=== PATIENT | female | born 1955 | race Caucasian/White ===

== ENCOUNTER 2019-02-05 20:35 | Emergency (ER) | payer OTHER ==
[~2019-02-05] VITALS: Ht 160 cm; Wt 83.9 kg
[~2019-02-05 20:35] MED LIST: AMITRIPTYLINE H50 MG PO; HALCION0.25 MG PO; METFORMIN HCL500 MG PO; PROTONIX40 MG PO
--- OUTSIDE RECORDS SUMMARY | 2019-02-05 20:38 | XMS ---
PreManage Notification: JADA WOODS Security Marketing Account Manager Events No recent Security Events currently on file CRITERIA MET - [facility] CARE PROVIDERS Castro Sánchez Current PHONE: Unknown [place] Current Orthopedic Surgery \T\ Fracture [facility] PHONE: Unknown Norris has no Care Guidelines for this patient. Seferino VISIT COUNT (12 MO.) Mima Abdi TOTAL 1 NOTE: Visits indicate total known visits. ED/UCC VISIT TRACKING (12 MO.) 02/05/2019 20:[address] [facility] [place] TYPE: Emergency COMPLAINT: - DIFFICULTY BREATHING INPATIENT VISIT TRACKING (12 MO.) No inpatient visits to display in this time frame [id number]
[2019-02-05] MEDS ORDERED: LEVAQUIN750 MG PO (22:24)
--- NOTE | 2019-02-06 06:19 | EKG ---
[facility] [address] [place], [place] [address] Signed Sinus tachycardia Inferior infarct , age undetermined Abnormal ECG No previous ECGs available Confirmed by SUDHIR MAHER MD ([id number]) on 02/06/2019 6:19:25 AM Electronically Signed By: SUDHIR MAHER MD 02/06/19 0619 PATIENT NAME: JADA WOODS Electrocardiogram DATE OF : 55 PHYSICIAN: SUDHIR MAHER MD REPORT #: [id number] REPORT IS CONFIDENTIAL AND NOT TO BE RELEASED WITHOUT AUTHORIZATION
== END 2019-02-05 23:08 | disposition home or self-care (01) ==
LOC: ED 20:35
DX: J18.9 Pneumonia, unspecified organism (principal); Z85.3 Personal history of malignant neoplasm of breast; E11.9 Type 2 diabetes mellitus without complications; Z87.891 Personal history of nicotine dependence; Z88.1 Allergy status to other antibiotic agents; Z88.5 Allergy status to narcotic agent; Z79.899 Other long term (current) drug therapy
CPT/HCPCS: 71046; 80053; 83735; 83880; 84484; 85025; 93005; 93010; 94640; 99285-25

== ENCOUNTER 2024-02-13 17:14 | Observation (INO) | payer MEDICARE ==
[~2024-02-13] VITALS: Ht 160 cm; Wt 60.0 kg
[~2024-02-13 17:14] MED LIST changes: +LEVAQUIN750 MG PO
--- OUTSIDE RECORDS SUMMARY | 2024-02-13 17:17 | XMS ---
PreManage Notification: JADA WOODS Security Technical Writing Lead/Mgr Events No recent Security Events currently on file CRITERIA MET - [employer] CARE PROVIDERS [facility] 02/11/2019-Current PHONE: Unknown Norris has no Care Guidelines for this patient. EJozef VISIT COUNT (12 MO.) 1 [facility] TOTAL 1 NOTE: Visits indicate total known visits. ED/UCC VISIT TRACKING (12 MO.) 02/13/2024 17:14 [facility] TYPE: Emergency COMPLAINT: - DIFFICULT BREATHING INPATIENT VISIT TRACKING (12 MO.) No inpatient visits to display in this time frame [email or web address]
[2024-02-13] MEDS ORDERED: ZOLPIDEM TARTRA10 MG PO (17:26)
[2024-02-13] MEDS ORDERED: TOPIRAMATE25 MG PO (17:26)
[2024-02-13] MEDS ORDERED: SERTRALINE HCL50 MG PO (17:27)
[2024-02-13] MEDS ORDERED: ALBUTEROL/IPRATROPIUM 3 ML NEB INH ONE (17:30)
[2024-02-13] MEDS ORDERED: methylPREDNISolone SOD SUCC 125 MG/2 ML VIAL IV ONE (17:30)
[2024-02-13 18:08] LABS: RDW 13.4 (10.5-15.0)
[2024-02-13 18:10] LABS: BASOPHILS 0.4 % (0-2); EOSINOPHILS 1.3 % (0-6); HEMATOCRIT 37.6 % (35.0-50.0); HEMOGLOBIN 12.4 g/dL (12.0-18.0); LYMPHOCYTES 4.4 % (24-44); MCH 31.5 (27-36); MCHC 32.9 g/dl (30-36); MCV 95.6 fl (81-99); MONOCYTES 10.2 % (0-12); NEUTROPHILS 83.7 % (39-80); PLATELET COUNT 203 K/uL (140-440); RBC 3.93 M/ul (4.3-5.7)
[2024-02-13 18:30] LABS: ALBUMIN 2.7 g/dL (3.4-5.0); ALBUMIN/GLOBULIN RATIO 0.59 (1.1-2.4); ANION GAP 13.7 (7-21); BILIRUBIN, TOTAL 0.9 ng/dL (0.2-1.0); POTASSIUM 3.7 mmol/L (3.5-5.1); PROTEIN, TOTAL 7.3 g/dL (6.4-8.2)
[2024-02-13 18:41] LABS: BUN/CREATININE RATIO 13.33 (6.0-28.6); CALCIUM 9.3 mg/dL (8.5-10.1); CREATININE, SERUM 0.9 mg/dL (0.55-1.02)
[2024-02-13] MEDS ORDERED: ACETAMINOPHEN 500 MG TAB PO PRN (21:15)
[2024-02-13] MEDS ORDERED: ondansetron HCL 4 MG/2 ML VIAL IV PRN (21:15)
[2024-02-13] MEDS ORDERED: ZOLPIDEM TARTRATE 5 MG TAB PO SCH (21:32)
[2024-02-13] MEDS ORDERED: NORTRIPTYLINE HCL 25 MG CAP PO SCH (21:33)
[2024-02-13] MEDS ORDERED: methylPREDNISolone SOD SUCC 125 MG/2 ML VIAL IV SCH (22:00)
[2024-02-13 22:19] VITALS: BP 117/72
--- NOTE | 2024-02-13 22:57 | NUR ---
PATIENT STATES SHE IS SUPPOSED TO DO NEBULIZER AT HOME AND DOES NOT USE. PATIENT STATES IT SI PULMICORT.
[2024-02-14] VITALS (7 sets, daily range): BP systolic 104–112; BP diastolic 61–68
--- NOTE | 2024-02-14 00:40 | NUR ---
pt RESTING IN THE BED WITH EYES CLOSED. RR EVEN AND UNLABORED. CALL LIGHT WITHIN REACH.
[2024-02-14] MEDS ORDERED: methylPREDNISolone SOD SUCC 125 MG/2 ML VIAL IV SCH (02:00)
--- NOTE | 2024-02-14 02:25 | NUR ---
pt RESTING IN THE BED WITH EYES CLOSED. RR EVEN AND UNLABORED. pt REQUESTED EARLIER TO HAVE THE CPOX ON. pt SATTING AT 98% ON 6LNC. CALL LIGHT WITHIN REACH.
--- NOTE | 2024-02-14 04:11 | NUR ---
pt RESTING IN THE BED WITH EYES CLOSED. pt TITRATED DOWN TO 4LNC. pt SATTING AT 94%. RR EVEN AND UNLABORED. CALL LIGHT WITHIN REACH.
[2024-02-14 05:42] LABS: HEMATOCRIT 36.3 % (35.0-50.0); LYMPHOCYTES 4.4 % (24-44); MCH 31.6 (27-36); MCHC 33.1 g/dl (30-36); MCV 95.6 fl (81-99); MONOCYTES 1.4 % (0-12); NEUTROPHILS 94.2 % (39-80); PLATELET COUNT 235 K/uL (140-440); RDW 13.3 (10.5-15.0)
[2024-02-14 05:52] LABS: BUN/CREATININE RATIO 19.79 (6.0-28.6); CALCIUM 9.2 mg/dL (8.5-10.1); CREATININE, SERUM 0.96 mg/dL (0.55-1.02); MAGNESIUM 2.1 mg/dL (1.8-2.4)
--- NOTE | 2024-02-14 06:22 | NUR ---
NEW IV STARTED ON pt, PER pt REQUEST. pt TOLERATED WELL. pt DENIES ANY OTHER NEEDS AT THIS TIME. CALL LIGHT WITHIN REACH.
--- NOTE | 2024-02-14 07:10 | NUR ---
RECEIVED REPORT FROM JEREMY HUA. ASSUMING CARE OF PT. PT RESTING IN BED WATCHING TV, STATES NO NEEDS AT THIS TIME, CALL LIGHT WITHIN REACH.
--- NOTE | 2024-02-14 08:17 | NUR ---
DID HRLY ROUNDING ON PT, SHE WAS SLEEPING UPDATED BOARD. CALL LIGHT IS WITHIN REACH.
[2024-02-14] MEDS ORDERED: TOPIRAMATE 25 MG TAB PO SCH (09:00)
[2024-02-14] MEDS ORDERED: levoFLOXacin 750 MG/150 ML BAG IV SCH (09:00)
[2024-02-14] MEDS ORDERED: PANTOPRAZOLE SODIUM 40 MG TABEC PO SCH (09:00)
[2024-02-14] MEDS ORDERED: SERTRALINE HCL 50 MG TAB PO SCH (09:00)
[2024-02-14] MEDS ORDERED: ENOXAPARIN SODIUM 40 MG/0.4 ML SYR SUB-Q SCH (09:00)
[2024-02-14] MEDS ORDERED: ALBUTEROL/IPRATROPIUM 3 ML NEB INH PRN (09:45)
--- NOTE | 2024-02-14 10:04 | NUR ---
ORDERS, H&P AND ER NOTE FAXED TO [facility] EMERGENCY DEPARTMENT FOR 10LITER CONCENTRATOR
--- NOTE | 2024-02-14 10:47 | NUR ---
UNABLE TO VISIT DURING SPIRITUAL CARE ROUNDS; PT IN CONFERENCE WITH CASE MANAGEMENT. PROVIDED PRAYER.
--- NOTE | 2024-02-14 10:49 | NUR ---
PATIENT ALERT AND ORIENTED, SITTING UP IN BED. LIVES IN APARTMENT WITH MULTIPLE FAMILY MEMBERS AND FRIENDS IN THE BUILDING WELL. STATES SOME AREAS HAVE STAIRS, BUT SHE DOES NOT HAVE TO USE THE STAIRS. HAS A WALKER, SHE FEELS IS TOO WIDE FOR HER HOME AND DOES NOT USE IT. SHE ALSO HAS OXYGEN THROUGH [facility], A NEBULIZER AND A SHOWER CHAIR. MAXINE (SON) IS HER EMERGENCY CONTACT. HIS PHONE NUMBER IS [phone]. PATIENT STATES FAMILY DRIVES HER TO HER APPOINTMENTS, SHE DOES NOT DRIVE. DENIES ANY FINANCIAL HARDSHIP WITH PAYING UTILITES, OBTAINING FOOD OR MEDICATIONS. STATES HER SON, MAXINE, DOES THE SHOPPING FOR HER. INFORMED PATIENT DR. MCCRAY HAS WRITTEN AN ORDER FOR A 10LITER CONCENTRATOR, VERBALIZES UNDERSTANDING. DISCUSSED HER NEED FOR A NEW MASK. PATIENT IS UNABLE TO CLARIFY WHAT MASK IS FOR, NEBULIZER VS. OXYGEN USE. PATIENT DENIES ANY FURTHER NEEDS AT THIS TIME. STATES SHE PLANS TO RETURN HOME AT TIME OF DISCHARGE.
--- NOTE | 2024-02-14 10:55 | NUR ---
PT AWAKE IN BED. PT DENIES PAIN AT THIS TIME. LUNG SOUNDS CLEAR, PT CONTINUES TO HAVE NONPRODUCATIVE COUGH, PT REMAINS ON 6L NC, O2 SATURATION 95%, DECREASES TO 88% WHILE THIS RN IN ROOM. O2 SATURATION INCREASES QUICKLY AFTER DECREASE, PT STATES SHE OCCASIONALLY FEELS SOB. PT STATES NO NEEDS AT THIS TIME, CALL LIGHT YANA REACH.
--- NOTE | 2024-02-14 11:38 | NUR ---
SPOKE WITH KEITH AT [facility]. WILL NOTIFY WHEN [employer]AC[employer] EDUCATOR IS ABLE TO DELIVER CONCENTRATOR. STATES COULD BE THIS AFTERNOON.
[2024-02-14] MEDS ORDERED: PHARMACY RENAL DOSE ADJUSTMENT 1 DOSE MISC PO SCH (12:00)
--- NOTE | 2024-02-14 12:10 | NUR ---
BEDBATH AND SHAMPOO CAP COMPLETED. HAIR COMBED. WARM BLANKET PROVIDED. PT SITTING UP IN BED FOR LUNCH. PT STATES NO FURTHER NEEDS AT THIS TIME, CALL LIGHT WITHIN REACH.
--- NOTE | 2024-02-14 12:57 | NUR ---
Mallorie from [facility] called to notify this nurse they will be delivering her concentrator this afternoon. Dr. Montague notified.
[2024-02-14] MEDS ORDERED: LEVOFLOXACIN750 MG PO (13:18)
[2024-02-14] MEDS ORDERED: METHYLPREDNISOLO4 M1 PO (13:18)
--- NOTE | 2024-02-14 14:08 | NUR ---
IMAGING AT BEDSIDE, PT TURNED TO L SIDE FOR IMAGING TEST. PT STATES NO NEEDS AT THIS TIME, CALL LIGHT WITHIN REACH.
--- NOTE | 2024-02-14 17:10 | NUR ---
PT DRESSED IN OWN PANTS WITH ASSISTANCE. VSS. IV DC'D WNL, WRAPPED WITH GAUZE AND COBAN. PT LEAVING WITH ALL BELONGINGS. DC PACKET AND EDUCATION GIVEN TO PT AND SON. PT AMBULATES TO WHEELCHAIR WITH 1PA, WHEELED TO FRONT OF BUILDING BY NURSING PERSONEL.
== END 2024-02-14 17:11 | disposition home or self-care (01) ==
LOC: ED 17:14 → MS 17:15
PROVIDERS: Emergency Medicine; ADMIT Internal Medicine; ATTEND Internal Medicine
DX: R09.02 Hypoxemia (principal); J84.10 Pulmonary fibrosis, unspecified; E11.9 Type 2 diabetes mellitus without complications; Z87.891 Personal history of nicotine dependence; Z79.899 Other long term (current) drug therapy; Z88.1 Allergy status to other antibiotic agents; Z88.5 Allergy status to narcotic agent; Z99.81 Dependence on supplemental oxygen; Z85.3 Personal history of malignant neoplasm of breast; Z66 Do not resuscitate
CPT/HCPCS: 36415; 71045; 80048; 80053; 83735; 83880; 85025; 93306; 94640; 94667; 94668; 94760; 96365; 96366; 96372; 96374; 96376; 99285-25; A9270; G0378; J1650; J1956; J2919

== ENCOUNTER 2024-02-22 19:25 | Emergency (ER) | payer MEDICARE ==
[~2024-02-22] VITALS: Ht 160 cm; Wt 58.0 kg
[~2024-02-22 19:25] MED LIST changes: +LEVOFLOXACIN750 MG PO; +METHYLPREDNISOLO4 M1 PO; +SERTRALINE HCL50 MG PO; +TOPIRAMATE25 MG PO; +ZOLPIDEM TARTRA10 MG PO
--- OUTSIDE RECORDS SUMMARY | 2024-02-22 19:29 | XMS ---
PreManage Notification: JADA WOODS Security Door Clamp Operator Events No recent Security Events currently on file CRITERIA MET - [facility] - 2 Visits in 30 Days CARE PROVIDERS [facility] 02/11/2019-Current PHONE: Unknown Norris has no Care Guidelines for this patient. Seferino VISIT COUNT (12 MO.) 2 [facility] TOTAL 2 NOTE: Visits indicate total known visits. ED/UCC VISIT TRACKING (12 MO.) 02/22/2024 19:26 [facility] TYPE: Emergency COMPLAINT: - SHORTNESS OF BREATH 02/13/2024 17:14 [facility] TYPE: Emergency COMPLAINT: - DIFFICULT BREATHING INPATIENT VISIT TRACKING (12 MO.) 02/13/2024 17:15 [facility] TYPE: Observation COMPLAINT: - HYPOXIA DIAGNOSES: - Allergy status to narcotic agent - Allergy status to other antibiotic agents - Dependence on supplemental oxygen - Do not resuscitate - Hypoxemia - Other incubator tender (current) drug therapy - Personal history of malignant neoplasm of breast - Personal history of nicotine dependence - Pulmonary fibrosis, unspecified - Shortness of breath - Type 2 diabetes mellitus without complications [email or web address]
[2024-02-22] MEDS ORDERED: ALBUTEROL SULFATE 0.5% 2.5 MG/0.5 ML VIAL INH ONE (19:45)
[2024-02-22 20:11] LABS: BASOPHILS 0.1 % (0-2); EOSINOPHILS 0.1 % (0-6); HEMATOCRIT 44.1 % (35.0-50.0); HEMOGLOBIN 14.7 g/dL (12.0-18.0); LYMPHOCYTES 2.1 % (24-44); MCH 31.4 (27-36); MCHC 33.3 g/dl (30-36); MCV 94.3 fl (81-99); MONOCYTES 4.3 % (0-12); NEUTROPHILS 93.4 % (39-80); PLATELET COUNT 236 K/uL (140-440); RBC 4.68 M/ul (4.3-5.7); RDW 13.2 (10.5-15.0)
[2024-02-22 20:32] LABS: ALBUMIN 2.6 g/dL (3.4-5.0); ALBUMIN/GLOBULIN RATIO 0.6 (1.1-2.4); BILIRUBIN, TOTAL 0.8 ng/dL (0.2-1.0); BUN/CREATININE RATIO 13.54 (6.0-28.6); CALCIUM 8.9 mg/dL (8.5-10.1); CREATININE, SERUM 0.96 mg/dL (0.55-1.02); PROTEIN, TOTAL 6.9 g/dL (6.4-8.2)
[2024-02-22 20:55] LABS: INFLUENZA B NAA NEGATIVE (NEGATIVE); RESPIRATORY SYNCYTIAL VIR NAA NEGATIVE (NEGATIVE)
[2024-02-22] MEDS ORDERED: ondansetron HCL 4 MG/2 ML VIAL IV ONE (23:15)
[2024-02-23 02:47] VITALS: BP 112/63
--- NOTE | 2024-02-24 12:28 | EKG ---
[facility] [address] [place] [address] Signed Sinus tachycardia Cannot rule out Anterior infarct , age undetermined Abnormal ECG When compared with ECG of 05-FEB-2019 20:45, No significant change was found Confirmed by Ida Richards MD () on 02/24/2024 12:28:14 PM Electronically Signed By: IDA RICHARDS MD 02/24/24 1228 PATIENT NAME: JADA WOODS LINNEA Electrocardiogram DATE OF : 55 PHYSICIAN: IDA RICHARDS MD REPORT #: [id number] REPORT IS CONFIDENTIAL AND NOT TO BE RELEASED WITHOUT AUTHORIZATION
== END 2024-02-23 02:58 | disposition short-term general hospital (02) ==
LOC: ED 19:25
PROVIDERS: Family Medicine
DX: J98.2 Interstitial emphysema (principal); R79.89 Other specified abnormal findings of blood chemistry; Z87.891 Personal history of nicotine dependence; Z88.5 Allergy status to narcotic agent; Z88.1 Allergy status to other antibiotic agents; Z79.899 Other long term (current) drug therapy
CPT/HCPCS: 36415; 71045; 71260; 80053; 82803; 83880; 84484; 85025; 85379; 87502; 93005; 93010; 94644; J2405; Q9967; U0002